=== PATIENT | male | born 1990 | race African-American/Black ===

== ENCOUNTER 2023-05-03 14:29 | Emergency (ER) | payer MEDICAID ==
[~2023-05-03] VITALS: Ht 185.4 cm; Wt 70.8 kg
[2023-05-03 14:35] VITALS: BP 114/68; TEMP 98.3; O2SAT 96
== END 2023-05-03 16:56 ==
LOC: ER 14:32
DX: S09.90XA Unspecified injury of head, initial encounter (principal); V49.9XXA Car occupant (driver) (passenger) injured in unspecified traffic accident, initial encounter; Y93.89 Activity, other specified; Y92.411 Interstate highway as the place of occurrence of the external cause; Y99.8 Other external cause status